=== PATIENT | female | born 1980 | race Caucasian/White ===

== ENCOUNTER 2022-11-23 17:53 | Emergency (ER) | payer OTHER, SELFPAY ==
--- NOTE | ~2022-11-23 | XR_ITS ---
EXAMINATION: XR ankle LT min 3V DATE: 11/23/2022 18:31 INDICATION: Inversion injury with medial and lateral left ankle pain TECHNIQUE: Anteroposterior, oblique, mortise, and lateral views of the left ankle were obtained. COMPARISON: None. FINDINGS: There is a nondisplaced transverse fracture through the lateral malleolus with a fracture plane exiti ng medially 1 cm below the level of the tibiotalar joint line. There is a second nondisplaced oblique fracture plane extending across the medial malleolus with the medial fracture line exiting near the junction of the articular surfaces of the medial malleolus and the tibial plafond. No other fracture identified. Specifically the stricture malleolus as well as the talar dome are intact. Ankle morti se remains congruent. Joint spaces are normal. Soft tissue swelling about both the medial and lateral malleoli. No ankle joint effusion. IMPRESSION: 1. Nondisplaced fractures of the medial and lateral malleoli of the left ankle. Reviewed, dictated and finalized at location A.
[2022-11-23 17:57] VITALS: BP 154/90; PULSE 95; RESP 20; TEMP 37.3; O2SAT 97
[2022-11-23 18:00] VITALS: BP 154/90; PULSE 95; RESP 20; TEMP 37.3; O2SAT 99
--- NOTE | 2022-11-23 18:13 | ED.GENADULT ---
HPI - General Adult General Chief complaint: Extremity Injury, Lower Stated complaint: L Ankle injury Time Seen by Provider: 11/23/22 18:12 Source: patient Mode of arrival: ambulatory Limitations: no limitations History of Present Illness HPI narrative: Patient is a 42-year-old white female twisted her ankle last night complains of lateral swelling and pain and a little bit of medial tenderness no pain hurts so bad today she threw up painful to walk on. No previous injury. She also could cause an abrasion to her right knee and a small scratch on her leg. No other injuries no loss of consciousness. Denies any problems seeing or hearing eating or drinking voiding or stooling bleeding or bruising rash or itching fever cough sore throat runny nose or any other complaints. Related Data Home Medications Medication Instructions Recorded Confirmed metoprolol succinate 50 mg 100 mg PO DAILY 11/23/22 11/23/22 tablet,extended release 24 hr omeprazole 20 mg capsule,delayed 20 mg PO DAILY 11/23/22 11/23/22 release Allergies Allergy/AdvReac Type Severity Reaction Status Date / Time Penicillins Allergy Unknown Anaphylaxis Unverified 11/23/22 17:57 Exam Narrative: White female no apparent distress.? Head normocephalic, atraumatic.? Eyes conjunctiva pink sclera nonicteric.? Extraocular movements are intact.? ? Extremities no cyanosis clubbing or edema.? Skin is warm and dry without rashes . abrasion of the right knee small scratch on her leg. Left ankle shows lateral malleolar swelling without contusion. She has moderate amount of tenderness inferiorly over the lateral malleolus. Minimal tenderness on the medial malleolus. No other tenderness of her foot ankle or leg. Stable ankle. DP and PT pulses are +2 she has normal above the left ankle. Course Vital Signs Vital signs: Vital Signs Temperature 37.3 C 11/23/22 17:57 Pulse Rate 95 11/23/22 17:57 Respiratory Rate 20 11/23/22 17:57 Blood Pressure 154/90 H 11/23/22 17:57 Pulse Oximetry 97 11/23/22 17:57 Oxygen Delivery Room Air 11/23/22 17:57 Temperature 37.3 C 11/23/22 18:00 Pulse Rate 95 11/23/22 18:00 Respiratory Rate 20 11/23/22 18:00 Blood Pressure 154/90 H 11/23/22 18:00 Pulse Oximetry 99 11/23/22 18:00 Oxygen Delivery Room Air 11/23/22 18:00 Medical Decision Making MDM Narrative Medical decision making narrative: patient was placed in room 2 history and physical was performed and x-rays done of her left ankle. Show nondisplaced fibular fracture distally And a distal tibial fracture over the medial malleolus. Patient is placed in a walking boot. patient was placed in a walking boot given Toradol 30 mg IM. Independent Historian:? ? Patient only Differential Dx includes but not limited to:? fracture dislocation sprain Medications were Reviewed: MEDICINES REVIEWED Independently Interpreted by me: left ankle x-ray shows soft tissue swelling laterally no fracture or dislocation , as well as a tibial fracture distally medial aspect as interpreted by me. Radiologist report reviewed by me showed:There is a nondisplaced transverse fracture through the lateral malleolus with a fracture plane exiting medially 1 cm below the level of the tibiotalar joint line. There is a second nondisplaced oblique fracture plane extending across the medial malleolus with the medial fracture line exiting near the junction of the articular surfaces of the medial malleolus and the tibial plafond.? No other fracture identified.? Specifically the stricture malleolus as well as the talar dome are intact.? Ankle mortise remains congruent. Joint spaces are normal. Soft tissue swelling about both the medial and lateral malleoli. No ankle joint effusion. IMPRESSION: 1. Nondisplaced fractures of the medial and lateral malleoli of the left ankle. External Source Review:? ? Social Situation Impacting Patients Care: Shared decision Making:? EVALUATION
[2022-11-23] MEDS: KETOROLAC 30 MG/ML VIAL (*BKC) IM (19:08)
[2022-11-23 19:28] VITALS: BP 153/93; PULSE 72; RESP 18; O2SAT 99
== END 2022-11-23 19:29 | disposition home or self-care (01) ==
PROVIDERS: Emergency Provider Emergency Medicine; PCP Family Medicine
DX: S82.845A Nondisplaced bimalleolar fracture of left lower leg, initial encounter for closed fracture (principal); X50.0XXA Overexertion from strenuous movement or load, initial encounter
CPT/HCPCS: 73610; 96372; 99283; J1885; L2112

== ENCOUNTER 2023-01-27 09:57 | Outpatient (RCR) | payer OTHER, MEDICAID, SELFPAY ==
--- NOTE | 2023-01-27 13:17 | PTOPEVAL1 ---
Assessment and note entered by JT File, PT Evaluation Information Assessment Status Evaluation Diagnosis L ankle fracture Onset November 23, 2022 Subjective Information Patient reports fracturing her L ankle on November 23 . The initial injury occurred when patient missed a step and fell down onto a grate while at a bar with friends. Patient did not visit the doctor until the following day after stepping down onto the L foot caused a significant increase in pain. Following x-rays showing fractures at the L ankle both medially and laterally, she was ordered to wear a boot 19/01 for 6 weeks. She notes she visited the doctor last Thursday, and she no longer has orders to wear the brace and has no weight bearing precautions. Patient reports no prior injuries to this area. She currently has pain with continued walking, stair climbing, and when pushing through L LE to get into/out of car. She states she is currently using a step to pattern while ascending/descending stairs. Patient states she has recently returned to work and has no difficulty performing activities there. Reported Pain Level Pain Score 0: Self Report Assessment PT Clinical Summary Gabi Spencer is a 42 y/o female who presents to skilled physical therapy following L ankle fractures. She currently demonstrates limitations in L ankle ROM, flexibility and strength, limiting patient's ability to ambulate with normal gait pattern. She has 25% functional decline assessed by the LEFS. She reports pain with activities that require continued weight bearing such as stair climbing and walking. Patient would benefit from skilled PT to address ROM, strength, and gait impairments. Plan of Care Interventions Electrical Stimulation,Gait Training,Hot Pack/Cold Pack,Manual Therapy,Neuro Re-education,Patient/ Caregiver Educati,Therapeutic Activities, Therapeutic Exercise PT Services Indicated Yes Treatment Frequency and 3x per week for 12 visits Duration These treatments will address the objective and functional deficits as defined above. The patient will be advanced safely and appropriately in order for the patient to progress towards his/her prior level of function. Additional exercises will be introduced and as well as a comprehensive home exercise program upon discharge, if needed, ?to ensure carryover of functional gains achieved in the clinic. This treatment plan has been reviewed and agreement upon by the patient.
== END 2023-02-09 23:59 | disposition home or self-care (01) ==
LOC: CHSPT 09:57
PROVIDERS: Visit Provider Orthopaedic Surgery
DX: S82.845A Nondisplaced bimalleolar fracture of left lower leg, initial encounter for closed fracture (principal)
CPT/HCPCS: 97110; 97112; 97150; 97161; 97530

== ENCOUNTER 2023-03-07 23:48 | Emergency (ER) | payer OTHER, SELFPAY ==
--- NOTE | ~2023-03-07 | CT_ITS ---
EXAMINATION: CT abdomen pelvis wo con DATE: 03/08/2023 00:19 INDICATION: Left abdominal pain, flank pain TECHNIQUE: Computed tomography (CT) of the abdomen and pelvis was performed without intravenous contr ast. Automated exposure control and iterative reconstruction technique were employed. Exam dose: 120 2.60 mGy-cm total exam DLP. COMPARISON: None. FINDINGS: The lung bases are clear of infiltrate or consolidation. Normal heart size. No pericardial or pleural effusion. There are at least 4 rounded or oval hypoattenuating lesions of the left and right hepatic lobes, wit h attenuation in the 30th 40 Hounsfield range. Further evaluation with MR liver examination is recomm ended for better characterization. Differential diagnosis includes hemangiomas, adenomas, metastases. Status post cholecystectomy. Normal splenic size with occasional splenic calcified granulomas consistent with old granulomatous di sease. No pancreatic mass lesion or calcification or pancreatic duct dilatation. No bile duct dilatation. Normal morphology of the adrenal glands. No renal mass lesion or urinary tract calculus or hydroureteronephrosis. Normal caliber of the abdominal aorta. No intraperitoneal or retroperitoneal or pelvic mass lesion or adenopathy or ascites. Approximately 3.2 cm right ovarian cyst Status post bilateral fallopian tube inserts. The urinary bladder is relatively evacuated. Normal appendix. No bowel obstruction, bowel wall thickening, pneumatosis or intraperitoneal free air . No suspicious osteolytic or osteoblastic lesions. IMPRESSION: Multiple indeterminate hepatic masses measuring up to 3.5 cm in 30-40 Hounsfield units. Hepatic MRI is recommended for further evaluation Status post cholecystectomy 3.2 cm right ovarian cystic lesion Status post bilateral fallopian tube inserts Normal appendix Reviewed, dictated and finalized at [facility]. Reviewed, dictated and finalized at location A. IMPRESSION: Multiple indeterminate hepatic masses measuring up to 3.5 cm in 30 -40 Hounsfield units. Hepatic MRI is recommended for further evaluation Status post cholecystectomy 3.2 cm right ovarian cystic lesion Status post bilateral fallopian tube inserts Normal appendix
[2023-03-07 23:51] VITALS: BP 144/97; PULSE 76; RESP 16; TEMP 36.4; O2SAT 98
[2023-03-08] MEDS: KETOROLAC 30 MG/ML VIAL (*BKC) IV PUSH (00:07)
[2023-03-08] MEDS: SODIUM CHLORIDE 0.9% IV 1,000 ML 999 ML IV CONT (00:08)
[2023-03-08] MEDS: ONDANSETRON INJ 4 MG/2 ML VIAL IV PUSH (00:08)
[2023-03-08 00:43] LABS: Appearance Urine Clear (Clear); Basophils Absolute Auto 0.04 K/mm3 (0.00-0.10); Basophils Percent Auto 0.6 % (0.0-1.0); Bilirubin Urine Negative (Negative); Blood Urine Negative (Negative); Color Urine Light Yellow (Yellow); Eosinophils Absolute Auto 0.02 K/mm3 (0.02-0.50); Eosinophils Percent Auto 0.3 % (1.0-6.0); Glucose Urine UA Negative (Negative); Hematocrit 37.2 % (35.0-49.0); Hemoglobin 12.4 g/dL (12.0-15.0); Immature Granulocyte Absolute 0.02 K/mm3 (0.00-0.00); Immature Granulocyte Percent A 0.3 % (0.0-0.0); Ketones Urine Negative (Negative); Leukocyte Esterase Ur 2+ LEU/UL (Negative); Lymphocytes Absolute Auto 2.01 K/mm3 (1.10-4.50); Lymphocytes Percent Auto 30.5 % (18.0-42.0); Mean Corpuscular HGB Conc 33.3 g/dL (32.0-36.0); Mean Corpuscular Hemoglobin 29.7 pg (27.0-31.0); Mean Corpuscular Volume 89.2 fL (78.0-102.0); Mean Platelet Volume 10.1 fl (9.2-11.8); Monocytes Absolute Auto 0.62 K/mm3 (0.10-0.90); Monocytes Percent Auto 9.4 % (2.0-11.0); Neutrophils Absolute Auto 3.9 K/mm3 (1.7-7.2); Neutrophils Percent Auto 58.9 % (50.0-70.0); Nitrate Urine Negative (Negative); Platelet Count Result 306 K/mm3 (150-420); Protein Urine Negative (Negative); Red Blood Count 4.17 M/mm3 (4.20-5.40); Red Cell Distribution Width 12.4 % (11.6-14.4); White Blood Count 6.6 K/mm3 (4.8-10.8)
[2023-03-08 00:49] LABS: Add Urine Microscopic? YES; Bacteria Urine 4+ /hpf; WBC Urine >75 /hpf (0-3)
[2023-03-08 00:56] LABS: Partial Thromboplastin Time 26.6 SEC (23.90-30.70); Prothrombin Time 11.1 Seconds (9.50-12.10)
[2023-03-08 00:59] LABS: Alanine Aminotransferase 16 U/L (14-59); Albumin Level 3.4 g/dL (3.4-5.0); Alkaline Phosphatase 80 U/L (46-116); Anion Gap 5 mmol/L (8-16); Aspartate Amino Transferase 13 U/L (15-37); Bilirubin,Total 0.4 mg/dL (0.00-1.00); Blood Urea Nitrogen 10 mg/dL (7-18); Calcium 8.6 mg/dL (8.5-10.1); Carbon Dioxide 30 mmol/L (21-32); Chloride 103 mmol/L (98-108); Estimated CRCL calculation 83 ml/min; Estimated Glomerular Filt Rate > 60; Glucose 89 mg/dL (70-99); Lipase 23 U/L (16-77); Osmolality Calculated 284 mOsm/kg (285-295); Potassium 3.9 mmol/L (3.5-5.1); Sodium 138 mmol/L (136-145); Total Protein 7.2 g/dL (6.4-8.2)
[2023-03-08 01:00] LABS: Lactic Acid Reflex 0.6 mmol/L (0.4-2.0)
[2023-03-08 02:06] VITALS: BP 123/87; PULSE 64; RESP 16; O2SAT 96
[2023-03-08] MEDS: KETOROLAC 15 MG/ML VIAL (*BKC) IV PUSH (03:47)
--- NOTE | 2023-03-08 06:25 | ED.GENADULT ---
HPI - General Adult General Chief complaint: Unspecified Stated complaint: l side pain Time Seen by Provider: 03/07/23 23:56 Source: patient Mode of arrival: ambulatory Limitations: no limitations History of Present Illness HPI narrative: 42-year-old female that presents with a flank radiates into lower groin area with no chills does have some dysuria hematuria no nausea no diarrhea constipation no chest pain or shortness. Patient no history of kidney stones. Onset (ago): day(s) Severity: moderate Severity scale (1-10): 6 Quality: aching Pain Consistency: intermittent Related Data Home Medications Medication Instructions Recorded Confirmed metoprolol succinate 50 mg 100 mg PO DAILY 11/23/22 01/21/23 tablet,extended release 24 hr omeprazole 20 mg capsule,delayed 20 mg PO DAILY 11/23/22 01/21/23 release mecobalamin (vitamin B12) 10,000 mcg IM 12/02/22 01/21/23 mcg solution for injection cholecalciferol (vitamin D3) 50 50 mcg PO DAILY 12/23/22 01/21/23 mcg (2,000 unit) capsule acetaminophen 650 mg 650 mg PO Q12H PRN 01/21/23 01/21/23 tablet,extended release (Tylenol 8 Hour) aspirin 325 mg tablet 325 mg PO DAILY PRN 01/21/23 01/21/23 ibuprofen 400 mg tablet 400 mg PO TID PRN 01/21/23 01/21/23 Allergies Allergy/AdvReac Type Severity Reaction Status Date / Time Penicillins Allergy Unknown Anaphylaxis Verified 03/07/23 23:51 Review of Systems Review of Systems: All systems reviewed & are unremarkable except as noted in HPI and below PMFSH Past Medical History Medical History Allergies Anemia Hypertension Nondisplaced bimalleolar fracture of left ankle October 2022 Surgical History Surgical History History of cholecystectomy History of rectal surgery hemorrhoid banding History of surgery of uterus esure Family History Family History Grandparent Cancer Other Cancer Mother Hypertension Social History Social History Smoking status: Never smoker Alcohol intake: current Substance use type: does not use Lack of Transportation: No Lack of Food: Never True Current Housing: I Have Housing Concerned About Future Housing: No Difficulty Paying Gas/Electric Bills: No Difficulty Paying for Meds: No Currently Unemployed: No Education: High School Diploma/GED Difficulty w/ Childcare or Family Care: No Living arrangements: alone Occupation/Education: occupation 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 Exam Const: General: cooperative, healthy appearing, comfortable and no acute distress Eyes: General: appearance normal, both eyes and all related structures Neck: Neck: normal visual inspection, full ROM and no lymphadenopathy Resp: Effort & Inspection: normal respiratory effort and able to speak in complete sentences Auscultation: clear to auscultation bilaterally Cardio: Jugular venous distension: no JVD Palpation: normal PMI Rate: regular rate : General: Yes bimanual renal exam normal bilaterally Back/Spine/Pelvis: Back: CVA tenderness Skin: General skin exam: normal color and no rashes or lesions noted Neuro: General: oriented to person, oriented to place and oriented to time Extrem: General: normal to inspection, full ROM and capillary refill normal Psych: Appearance: grossly normal Mental Status: mental status grossly normal Course Course Emergency Course: Labs reviewed with patient, patient received Toradol for received IV hydration and UA shows that she has a urinary tract. CT scan reviewed with patient no evidence of nephrolithiasis, does show a ovarian cyst on the right, room and small lesions on the liver in the absence of any cancers appears to be hemangioma are adenomas an
[2023-03-08 06:47] VITALS: BP 121/89; PULSE 62; RESP 16; TEMP 36.6; O2SAT 98
--- NOTE | 2023-03-10 13:46 | PC.NURSE ---
Final urine culture report: Patient discharged on Macrobid 100mg, 1 capsule po q12h x7 days, #14, 0 refill. culture is susceptible, no further treatment or action needed patient to continue medication as prescribed per ERP Dr. Henry
== END 2023-03-08 06:50 | disposition home or self-care (01) ==
PROVIDERS: Emergency Provider Emergency Medicine; PCP Family Medicine
DX: N30.00 Acute cystitis without hematuria (principal); I10 Essential (primary) hypertension
CPT/HCPCS: 36415; 74176; 80053; 81001; 83605; 83690; 85025; 85610; 85730; 87077; 87086; 87088; 87186; 96361; 96374; 96375; 96376; 99284; J1885; J2405; J7030

== ENCOUNTER 2023-03-19 08:58 | Outpatient (CLI) | payer OTHER, MEDICAID, SELFPAY ==
--- NOTE | ~2023-03-19 | US_ITS ---
Pelvic ultrasound. Clinical History: Ovarian cyst Technique: Realtime transabdominal and transvaginal scanning of the pelvis was performed. Color flow Doppler and Doppler spectral analysis were performed. Findings: The uterus is anteverted. The endometrial stripe has a thickness of 12 mm. No focal mass i s identified. The right ovary measures 2.3 x 2.2 x 1.6 cm. No significant right ovarian or adnexal mass is seen. The left ovary measures 2.7 x 2.5 x 2.2 cm. No significant left ovarian or adnexal mass is seen. There is no evidence of free fluid in the cul de sac. Impression: No significant abnormality seen. Reviewed, dictated and finalized at location . Impression: No significant abnormality seen.
--- NOTE | ~2023-03-19 | MR_ITS ---
EXAMINATION: MR abdomen wo/w con INDICATION: Indeterminate liver masses TECHNIQUE: Coronal SSFSE ARC, WATER:coronal LAVA-FLEX, Coronal 2D FIESTA FatSat, Axial SSFSE BH ARC, Axial 3D DualEcho BH, Axial SSFSE-IR, Axial DWI b=500, Axial 2D FIESTA FatSat, pre and dynamic postco ntrast Axial LAVA ARC, postcontrast Coronal In and Opposed phase LAVA FLEX COMPARISON: CT, 03/08/2023 CONTRAST: Multihance, 20 cc FINDINGS: There are multiple T1 hypointense, T2 hyperintense liver masses which demonstrate interrupt ed peripheral nodular enhancement with gradual centripetal filling on progressively of postcontrast s equences, consistent with hemangiomas. Measurements are as follows: 3.5 x 2.9 cm in liver segment Kristyn , 2.8 x 2.8 cm in liver segment VII 2.1 x 1.9 cm in liver segment III.6 x 1.5 cm in liver segment V, and 0.6 cm in liver segment . No suspicious liver mass is identified. The spleen, pancreas, and adr enal glands are normal. There are changes of cholecystectomy. There are no pathologically enlarged ab dominal lymph nodes. The kidneys are unremarkable. There are no dilated loops of bowel. IMPRESSION: 1. Multiple liver masses with MRI characteristics consistent with hemangiomas. Reviewed, dictated and finalized at location L.
== END 2023-03-19 08:59 | disposition home or self-care (01) ==
LOC: CHSIMG 08:58
PROVIDERS: PCP Family Medicine; Visit Provider Physician Assistant
DX: R16.0 Hepatomegaly, not elsewhere classified (principal); N83.209 Unspecified ovarian cyst, unspecified side
CPT/HCPCS: 74183; 76830; 76856; A9577

== ENCOUNTER 2023-03-24 08:13 | Outpatient (CLI) | payer OTHER, MEDICAID, SELFPAY ==
--- NOTE | ~2023-03-24 | XR_ITS ---
EXAMINATION: XR lumbar spine 2-3V DATE: 03/24/2023 08:29 INDICATION: Left flank pain. TECHNIQUE: 3 views of lumbar spine were obtained. COMPARISON: None. FINDINGS: There is 4 degrees dextrocurvature of lumbar spine. There is mild chronic anterior wedging of T10-T12 vertebral bodies. Intervertebral disc heights are normal. There are endplate osteophytes a t most levels. There is multilevel mild facet joint osteoarthritis. Surgical clips in the right upper quadrant are likely from cholecystectomy. There are inserts in the area of the fallopian tubes. IMPRESSION: 1. Mild lumbar spondylosis. Reviewed, dictated and finalized at location A. IMPRESSION: 1. Mild lumbar spondylosis.
== END 2023-03-24 08:14 | disposition home or self-care (01) ==
LOC: CHSIMG 08:16
PROVIDERS: PCP Family Medicine; Visit Provider Physician Assistant
DX: R10.9 Unspecified abdominal pain (principal); M43.06 Spondylolysis, lumbar region
CPT/HCPCS: 72100

== ENCOUNTER 2023-03-31 07:58 | Outpatient (CLI) | payer OTHER, MEDICAID, SELFPAY ==
--- NOTE | ~2023-03-31 | US_ITS ---
EXAMINATION: US retroperitoneal comp DATE: 03/31/2023 08:20 INDICATION: Left flank pain TECHNIQUE: Multiple ultrasound grayscale images of the kidneys were obtained. COMPARISON: Abdomen MRI dated 03/19/2023 FINDINGS: The right kidney measures 12.3 x 5.0 x 5.0 cm. The left kidney measures 10.5 x 4.3 x 6.8 cm. Dromedar y hump at the lateral margin of the left kidney. The kidneys demonstrate normal echogenicity. There i s no hydronephrosis in either kidney. No stones identified. The bladder is normal. IMPRESSION: 1. Normal kidneys without hydronephrosis. Reviewed, dictated and finalized at location A.
== END 2023-03-31 07:59 | disposition home or self-care (01) ==
LOC: CHSIMG 07:59
PROVIDERS: PCP Family Medicine; Visit Provider Physician Assistant
DX: R10.9 Unspecified abdominal pain (principal)
CPT/HCPCS: 76770

== ENCOUNTER 2023-06-24 13:07 | Outpatient (CLI) | payer OTHER, MEDICAID, SELFPAY ==
--- NOTE | 2023-06-24 13:31 | ECG_ITS ---
Measurements Intervals [place] Rate: 73 P: 9 OH: 155 QRS: 9 QRSD: 113 T: 9 QT: 379 QTc: 420 Interpretive Statements SINUS RHYTHM MINIMAL VOLTAGE CRITERIA FOR LVH, CONSIDER NORMAL VARIANT [MEETS CRITERIA IN ONE OF: R(aVL), S(V1), R(V5), R(V5/V6)+S(V1)] INFERIOR MYOCARDIAL INFARCTION [40+ ms Q WAVE AND/OR ST/T ABNORMALITY IN II/aVF], PROBABLY OLD NO PREVIOUS ECG AVAILABLE FOR COMPARISON Electronically Signed On 06-24-2023 21:06:44 ETHICS INSTRUCTOR by Lauren Bartholomew M.D.
[2023-06-24 13:59] LABS: Alanine Aminotransferase 15 U/L (6-35); Albumin Level 3.9 g/dL (3.5-5.1); Alkaline Phosphatase 68 U/L (38-126); Anion Gap 8 mmol/L (8-16); Aspartate Amino Transferase 22 U/L (14-36); Bilirubin,Total 0.3 mg/dL (0.2-1.3); Blood Urea Nitrogen 7 mg/dL (7-17); Calcium 8.9 mg/dL (8.4-10.2); Carbon Dioxide 24 mmol/L (22-30); Chloride 105 mmol/L (98-107); Estimated Glomerular Filt Rate > 60; Glucose 97 mg/dL (65-110); Potassium 4.2 mmol/L (3.4-5.0); Sodium 137 mmol/L (137-145)
== END 2023-06-24 13:08 | disposition home or self-care (01) ==
LOC: ANHSURGERY 13:12
PROVIDERS: PCP Family Medicine; Visit Provider Obstetrics & Gynecology
DX: N92.1 Excessive and frequent menstruation with irregular cycle (principal); I10 Essential (primary) hypertension; Z01.818 Encounter for other preprocedural examination
CPT/HCPCS: 36415; 80053; 86850; 86900; 86901; 93005

== ENCOUNTER 2023-06-26 04:12 | Day surgery (SDC) | payer OTHER, MEDICAID, SELFPAY ==
[2023-06-19 08:44] VITALS: BMI 39.3
--- NOTE | 2023-06-19 08:49 | PC.NURSE ---
Report to the Outpatient Waiting Room, entrance under the green pavilion located off [facility], at time 10:00 on date 06/26/23. Planned Procedure Time: 12:00. Time changes happen often and if your time is changed the preop area will call you the afternoon before. - You and your visitor will be asked to self-screen and do not enter if you have any COVID symptoms. - A mask is optional within the hospital at this time. Patients may have clear liquids (water, carbonated beverages, clear teas, apple juice) until 3 hours prior to surgery (9:00) with a maximum of 20 ounces. - No food from midnight until time of surgery Take the following medications with a SIP of water the morning of surgery: TYLENOL, METOPROLOL DO NOT STOP ANY OF YOUR OTHER PRESCRIPTION MEDICATIONS PRIOR TO SURGERY ?EXCEPT THE FOLLOWING Medications to discontinue per physician: VITAMINS/SUPPLEMENTS Date to take last dose: 06/22/[address] SANTANA REGARDING ASPIRIN Please no make-up, nail sao tomean, hairspray, perfume, deodorant, or body powder the day of surgery. No jewelry (including any body piercings) or valuables the day of surgery, leave them at home. Please take a shower or bath the night before, or the morning of, surgery with an antibacterial soap. Wear comfortable, loose fitting clothing. - Jewelry must be removed prior to entering the operating room. Rings and piercings that are not removed may be cut off. - The hospital will not accept responsibility for valuables. - Please leave all valuables, including medications, at home the day of surgery. If you are going home after surgery, a licensed local company refrigerated truck driver must drive you home. - NO public transportation without another adult if you receive anesthesia. - We recommend that an adult stay with you for 24 hours following discharge. - We also recommend that you do not drive, make important decision, drink alcoholic beverages, or take any drugs that were not prescribed by your health care provider for at least 24 hours after your discharge time. Follow any additional instructions given to you from your surgeon. If you or anyone in your household have experienced Covid symptoms in the past week, please notify your surgeon or the nurse liaison at the phone number below for possible testing. Telephone instructions given to PT - STEPHON MOELLER and asked if any additional questions and then verbalized understanding. Patient advised to call surgeon office or pre surgery nurse liaison [phone] if any additional questions.
[2023-06-26] VITALS (9 sets, daily range): BP systolic 131–152; BP diastolic 75–93; PULSE 68–102; RESP 12–18; TEMP 36.3–36.7; O2SAT 92–100
[2023-06-26] MEDS: LACTATED RINGERS 1,000 ML 30 ML IV CONT ×2 (11:05→14:32)
[2023-06-26] MEDS: KETOROLAC 15 MG/ML VIAL (*BKC) IV PUSH (11:05)
[2023-06-26] MEDS: ACETAMINOPHEN 500 MG TABLET 1000 MG PO (11:05)
--- NOTE | 2023-06-26 11:15 | WPDANESEPPF ---
Anes - Initial Pre Proc Eval Procedure: Operation Date: 06/26/23 12:00 Proposed Procedures p Laparoscopic Assisted Hysterectomy with Bilateral Salpingectomy - Benton Calderón MD Date/Time: 06/26/23 11:15 Surgeon: Benton Calderón MD Pre Op Diagnosis: Excessive and Frequent menstruation Patient Data Age: 42 Gender: F Height: 1.57 m Weight: 97.52 kg Allergies Allergy/AdvReac Type Severity Reaction Status Date / Time Penicillins Allergy Unknown Anaphylaxis Verified 06/19/23 08:42 Home Medications Medication Instructions Recorded Confirmed Type metoprolol succinate 50 mg 100 mg PO DAILY 11/23/22 06/19/23 History tablet,extended release 24 hr omeprazole 20 mg capsule,delayed 20 mg PO DAILY 11/23/22 06/19/23 History release mecobalamin (vitamin B12) 10,000 10,000 mcg IM MONTHLY 12/02/22 06/19/23 History mcg solution for injection cholecalciferol (vitamin D3) 50 50 mcg PO DAILY 12/23/22 06/19/23 History mcg (2,000 unit) capsule acetaminophen 650 mg 650 mg PO Q12H PRN Pain 01/21/23 06/19/23 History tablet,extended release (Tylenol 8 Hour) aspirin 325 mg tablet 325 mg PO DAILY 01/21/23 06/19/23 History Patient hx anesthesia problems: none Family hx anesthesia problems: none Results Review: All pre-operative results and documents have been reviewed as part of the pre-operative evaluation. [facility] Past Medical History Medical History Allergies Anemia Hypertension Nondisplaced bimalleolar fracture of left ankle October 2022 Surgical History Surgical History History of cholecystectomy History of rectal surgery hemorrhoid banding History of surgery of uterus esure Family History Family History Grandparent Cancer Other Cancer Mother Hypertension Social History Social History Smoking status: Never smoker Alcohol intake: former Substance use: never Substance use type: does not use Lack of Transportation: No Lack of Food: Never True Current Housing: I Have Housing Concerned About Future Housing: No Difficulty Paying Gas/Electric Bills: No Difficulty Paying for Meds: No Currently Unemployed: No Education: High School Diploma/GED Difficulty w/ Childcare or Family Care: No Living arrangements: with family Occupation/Education: occupation 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 Informed Consent: The patient's anesthetic plan and its attendant risks and benefits were discussed with the patient/family/POA. Questions were solicited and answers provided to the satisfaction of the patient/family/POA.
--- NOTE | 2023-06-26 12:18 | PM.IMHP ---
H&P: HPI History of Present Illness Date/Time: 06/26/23 12:18 Chief Complaint: Heavy vaginal bleeding Narrative: 42-year-old female with severe menorrhagia. We have agreed to perform total laparoscopic hysterectomy bilateral salpingectomy. We have discussed the procedure in detail. She understands the procedure. With she understands there is risk. She understands that injuries may occur that result in hospitalization, more surgery, and severe illness. She did denies any chest pain shortness of breath. She denies any nausea, vomiting, fever, chills. She understands risk of hemorrhage and infection. Review of Systems Review of Systems: All systems reviewed & are unremarkable except as noted in HPI and below Constitutional: Constitutional: Denies chills, Denies fatigue, Denies fever(s) and Denies weakness Eyes: Eyes: Denies blurry vision, Denies change in vision, Denies loss of peripheral vision, Denies loss of vision, Denies other visual disturbances and Denies eye pain ENT: Denies vertigo, Denies dizziness, Denies hearing loss, Denies mouth pain, Denies nasal obstruction, Denies neck mass and Denies neck pain Cardiovascular: Cardiovascular: Denies chest pain, Denies diaphoresis, Denies syncope, Denies leg edema and Denies dyspnea Respiratory: Respiratory: Denies chest congestion, Denies cough, Denies hemoptysis, Denies dyspnea and Denies wheezing Gastrointestinal: Gastrointestinal: Denies abdominal pain, Denies constipation, Denies diarrhea, Denies nausea and Denies vomiting Genitourinary: Genitourinary: Denies hematuria, Denies change in libido, Denies nocturia, Denies genital lesions, Denies flank pain and Denies urinary urgency Musculoskeletal: Musculoskeletal: Denies abnormal gait, Denies back pain, Denies myalgias, Denies arthralgias, Denies joint swelling, Denies muscle weakness and Denies neck pain Integumentary/Breasts: Skin/Breast: Denies swelling, Denies breast pain, Denies breast mass, Denies dry skin, Denies nipple discharge, Denies unusual bruising and Denies jaundice Neurologic: Denies Neuro-related abnormal movements, Denies Abnormal speech present, Denies abnormal gait, Denies behavioral changes, Denies confusion, Denies vertigo, Denies dizziness, Denies syncope, Denies loss of vision, Denies memory loss, Denies convulsions and Denies weakness Psychiatric: Psychiatric: Denies abnormal sleep pattern, Denies behavioral changes, Denies change in libido, Denies confusion, Denies depression, Denies anhedonia and Denies memory loss Endocrine: Endocrine: Reports no additional endocrine complaints, Denies change in libido and Denies fatigue Hematologic/Lymphatic: Hematologic/Lymphatic: Reports no additional hematologic/lymphatic complaints Allergic/Immunologic: Allergic/Immunologic: Reports no additional allergic/immunologic complaints and Denies wheezing PMFSH Past Medical History Medical History Allergies Anemia Hypertension Nondisplaced bimalleolar fracture of left ankle October 2022 Surgical History Surgical History History of cholecystectomy History of rectal surgery hemorrhoid banding History of surgery of uterus esure Family History Family History Grandparent Cancer Other Cancer Mother Hypertension Social History Social History Smoking status: Never smoker Alcohol intake: former Substance use: never Substance use type: does not use Lack of Transportation: No Lack of Food: Never True Current Housing: I Have Housing Concerned About Future Housing: No Difficulty Paying Gas/Electric Bills: No Difficulty Paying for Meds: No Currently Unemployed: No Education: High School Diploma/GED Difficulty w/ Childcare or Family Care: No Living arrangements: with
--- NOTE | 2023-06-26 12:21 | WPDHPUPDATE1 ---
History and Physical Update Update Date/Time: 06/26/23 12:21 History and Physical has been reviewed, including an updated exam of the patient. There are NO changes in the patient's condition. Risks, benefits, and alternatives have been discussed and questions answered. Patient agrees to proceed with procedure.
[2023-06-26] MEDS: ceFAZolin 2 GM/D5W 50 ML 2 GM/50 ML BAG IVPB (12:29)
[2023-06-26] MEDS: ceFAZolin SODIUM 1 GM VIAL (13:10)
--- NOTE | 2023-06-26 14:28 | P.OP_ITS ---
Procedure Note - Detailed Date of Procedure 06/26/23 Pre-op Diagnosis Excessive and Frequent menstruation Post-op Diagnosis Same Procedure Performed Total laparoscopic hysterectomy. Surgeon Benton Calderón MD Anesthesia General Findings Mildly enlarged uterus, normal-appearing tubes and ovaries, Increased vasc ularity and scarring around the cervix. normal vulva, vagina, cervix. Description of Procedure This patient was taken to the operating room. She was prepped and draped in the dorsal lithotomy position after induction of general anesthesia. The uterine manipulator and Laureen cup were placed. This was done with a speculum and tenaculum. The speculum was placed. The cervix was grasped with a tenaculum. The stay sutures were placed at 3 and 9:00 a.m.. The stay sutures of 0 Vicryl were brought through the appropriately sized Laureen cup. The tip of the ARNALDO manipulator was placed in the intrauterine cavity. The cup was slid into place around the cervix and into the fornices. It was locked into place. The sutures were then wrapped around the handle and tied under tension. A 5 mm skin incision was made in the left upper quadrant the abdomen. A 5 mm trocar was inserted into the intrauterine cavity under direct visualization of the scope. Pneumoperitoneum was achieved. A left lower quadrant 11 mm incision was made with scalpel. An 11 mm trocar was inserted into the anterior abdominal cavity under direct visualization the scope. A 5 mm infraumbilical incision was made with a scalpel and a 5 mm trocar was inserted the intra-abdominal cavity under direct visualization of the scope. Bilateral ureteral lysis was performed. This was done from the pelvic brim down to the uterine artery. This was done with careful dissection using sharp and blunt dissection. The fallopian tubes were removed bilaterally. The mesosalpinx around the fallopian tubes were cauterized transected with LigaSure cautery. This was done in a bilateral fashion from the ovary to the uterine cornua. The fallopian tube was transected at the uterine cornu and amputated. The tube was taken out the left lower quadrant trocar site. In a stepwise fashion along the lateral aspects of the uterus the round ligament and broad ligaments were cauterized transected down to the level of the uterine arteries. A bladder flap was created in the bladder was moved distally to the end of the cervix and over the Laureen cup. The bilateral uterine arteries were cauterized and transected. Colpotomy was then performed. In a circumferential fashion the vagina was transected using unipolar cautery. The incision was made down on the Laureen cup. The uterus and cervix were taken out through the vagina. A pneumo occluder was placed in the vagina. The vaginal cuff was closed with a 0 V lock suture in a running fashion. The pelvis was irrigated with copious amounts antibiotic irrigation. The ureters were again examined and found to be intact and flowing freely under the uterine arteries into the bladder. The bladder was intact. It was examined directly. The vagina was irrigated with Betadine solution after removal of the Pneumo occluder. The patient was taken to recovery room. She was stable condition. Sponge lap and needle counts were correct x2. Estimated Blood Loss 150 Drains Yes Packing No Pathology Yes Complications No immediate complications Condition Stable Disposition Floor
--- NOTE | 2023-06-26 15:37 | PC.NURSE ---
This patient, Gabi Spencer, was received from PACU on 06/26/23 at 1537. Patient/family oriented to unit policies and routines
[2023-06-26] MEDS: DEXTROSE 5%/0.45% SOD CHL 1,000 ML 125 ML IV CONT (16:06)
[2023-06-26] MEDS: KETOROLAC 30 MG/ML VIAL (*BKC) IV PUSH ×2 (16:07→23:35)
[2023-06-26] MEDS: ONDANSETRON INJ 4 MG/2 ML VIAL IV PUSH (16:10)
[2023-06-26] MEDS: HYDROcodone/acetaminophen (*CRX) 10-325 MG TABLET 1 TAB PO (19:26)
[2023-06-27 04:50] VITALS: BP 112/71; PULSE 62; RESP 18; TEMP 36.9; O2SAT 98
[2023-06-27] MEDS: HYDROcodone/acetaminophen (*CRX) 5-325 MG TABLET 1 TAB PO ×2 (04:52→08:54)
--- NOTE | 2023-06-27 08:00 | PC.NURSE ---
PT introductions made and plan of care discussed per post op certified rehabilitation counselor surgery, pain management, daily care activities and pending discharge to home. PT sole recipient of such instructions and no barriers to learning identified at this time. PT received such instructions per one to one discussion, and demonstrations this shift. PT verbalized understanding of such care.
[2023-06-27] MEDS: IBUPROFEN 600 MG TABLET PO (08:53)
[2023-06-27] MEDS: PANTOPRAZOLE 40 MG TABLET PO (08:54)
[2023-06-27 08:55] VITALS: BP 112/70; PULSE 69; RESP 18; TEMP 36.8; O2SAT 97
[2023-06-27] MEDS: METOPROLOL SUCCINATE EXT REL 100 MG TABCR PO (08:55)
--- NOTE | 2023-06-27 10:32 | PM.GYNPNOP ---
SIENE MAKER - A/P Postoperative Procedures: Procedures Operation Date: 06/26/23 12:00 Actual Procedure Side Surgeon p Laparoscopic Assisted Hysterectomy with Bilateral Salpingectomy Bilateral Benton Calderón MD Postoperative day: 1 Postoperative status: doing well Postoperative plan: see orders Time Spent With Patient Time: Total time spent is greater than 50% in coordination of care (as documented) at patient's floor/unit and/or counseling patient: Time with patient: less than 15 minutes SIENE MAKER- PN:Subj Post-Op Subjective Date/time seen: 06/27/23 10:32 Subjective: patient reports feeling better, patient has no complaints and pain is well controlled Exam Const: General: healthy appearing, comfortable and no acute distress Resp: Auscultation: clear to auscultation bilaterally, no rales, no rhonchi and no wheezes Cardio: Rate: regular rate Heart sounds: no click, no murmurs and no rubs GI: Inspection: non-distended Auscultation: normal bowel sounds Extrem: General: normal to inspection, no pedal edema and no calf tenderness SIENE MAKER - PN: Obj Data Vital Signs Vital Signs: Vital Signs - 24 hr 06/26/23 12:02 06/26/23 14:32 06/26/23 15:08 Temperature 97.3 F L 97.5 F L Pulse Rate 68 102 H Respiratory Rate 14 16 Blood Pressure 144/89 H 152/89 H Pulse Oximetry 100 100 Oxygen Delivery Room Air Simple Face Mask Room Air Oxygen Flow Rate 6 06/26/23 15:15 06/26/23 15:25 06/26/23 14:45 Temperature 97.5 F L Pulse Rate 83 85 84 Respiratory Rate 12 16 12 Blood Pressure 139/92 H 134/82 150/93 H Pulse Oximetry 92 93 100 Oxygen Delivery Room Air Room Air Simple Face Mask Oxygen Flow Rate 6 06/26/23 15:00 06/26/23 15:45 06/26/23 19:30 Temperature 97.3 F L 98.1 F Pulse Rate 81 79 75 Respiratory Rate 14 16 18 Blood Pressure 144/89 H 131/75 132/89 Pulse Oximetry 100 97 97 Oxygen Delivery Simple Face Mask Oxygen Flow Rate 6 06/26/23 19:30 06/26/23 23:35 06/26/23 23:35 Temperature 97.5 F L Pulse Rate 73 Respiratory Rate 18 Blood Pressure 135/90 Pulse Oximetry 100 Oxygen Delivery Room Air Room Air Oxygen Flow Rate 06/27/23 04:50 06/27/23 04:50 06/27/23 08:55 Temperature 98.4 F Pulse Rate 62 69 Respiratory Rate 18 Blood Pressure 112/71 Pulse Oximetry 98 Oxygen Delivery Room Air Oxygen Flow Rate Intake/Output Intake/Output: Intake & Output 06/24/23 06/25/23 06/26/23 06/27/23 23:59 23:59 23:59 23:59 Intake Total 850 1000 Output Total 800 Balance 50 1000 Meds/Results Medications: Active Medications Generic Name Dose Route Start Last Admin Trade Name Freq PRN Reason Stop Dose Admin Hydrocodone Bitart/Acetaminophen 1 tab 06/26/23 15:29 06/27/23 08:54 Hydrocodone/Acetaminophen (*Crx) 5-325 Mg Tablet PO 1 tab Q3H PRN Administration Pain Rated 5 or Less Hydrocodone Bitart/Acetaminophen 1 tab 06/26/23 15:29 06/26/23 19:26 Hydrocodone/Acetaminophen (*Crx) 10-325 Mg Tablet PO 1 tab Q3H PRN Administration Pain Rated 6 or Greater Ibuprofen 600 mg 06/26/23 15:29 06/27/23 08:53 Ibuprofen 600 Mg Tablet PO 600 mg Q6H PRN Administration Cramping Ketorolac Tromethamine 30 mg 06/26/23 15:29 06/26/23 23:35 Ketorolac 30 Mg/Ml Vial (*Bkc) IV PUSH 07/01/23 15:28 30 mg Q6H PRN Administration Pain Rated 4-6 Metoprolol Succinate 100 mg 06/27/23 09:00 06/27/23 08:55 Metoprolol Succinate Ext Rel 100 Mg Tabcr PO 100 mg DAILY GERALDINE Administration Naloxone HCl 0.1 mg 06/26/23 15:29 Naloxone Hcl 0.4 Mg/Ml Vial IV PUSH Q2M PRN Respiratory rate less than 10 Ondansetron HCl 4 mg 06/26/23 15:29 06/26/23 16:10 Ondansetron Inj 4 Mg/2 Ml Vial IV PUSH 4 mg Q6H PRN Administration Nausea And Vomiting Pantoprazole Sodium 40 mg 06/27/23 09:00 06/27/23 08:54 Pantoprazole 40 Mg Tablet PO 40 mg DAILY GERALDINE Administration
--- NOTE | 2023-06-27 11:00 | PC.NURSE ---
PT received discharge instructions per protocol and verbalized understanding of such care.
--- NOTE | 2023-06-27 11:25 | PC.NURSE ---
PT discharged to home ambulatory accompanied by family and walked to waiting car. Follow up appts confirmed
== END 2023-06-27 11:25 | disposition home or self-care (01) ==
LOC: ANHSURGERY 10:09 → ANHOB2 15:40
PROVIDERS: PCP Family Medicine; Visit Provider Obstetrics & Gynecology
PROC: 0UT9FZZ Resection of Uterus, Via Natural or Artificial Opening With Percutaneous Endoscopic Assistance (ICD-10-PCS; CPT 58571; principal; 2023-06-26 12:00)
DX: N88.8 Other specified noninflammatory disorders of cervix uteri (principal); N87.9 Dysplasia of cervix uteri, unspecified; N92.0 Excessive and frequent menstruation with regular cycle; I10 Essential (primary) hypertension
CPT/HCPCS: 58571; 36415; 80053; 86850; 86900; 86901; 88307; 93005; 99199; A9270; J0330; J0690; J1100; J1170; J1200; J1885; J2250; J2405; J2704; J3010; J7030; J7120

== ENCOUNTER 2023-12-24 08:06 | Outpatient (CLI) | payer OTHER, MEDICAID, SELFPAY ==
--- NOTE | ~2023-12-24 | US_ITS ---
EXAMINATION: US renal BI DATE: 12/24/2023 08:30 INDICATION: Urinary frequency and burning with urination TECHNIQUE: Multiple ultrasound grayscale images of the kidneys were obtained. COMPARISON: None. FINDINGS: The right kidney measures 12.2 x 4.8 x 5.6 cm. The left kidney measures 12.3 x 5.3 x 6.2 cm. The kidn eys demonstrate normal echogenicity. There is no hydronephrosis in either kidney. No stones identifi ed. The bladder is normal with calculated prevoid bladder volume of 65.8 mm and postvoid bladder volu me of 5 mm.. IMPRESSION: 1. Normal kidneys without hydronephrosis. Reviewed, dictated and finalized at location B.
== END 2023-12-24 08:07 | disposition home or self-care (01) ==
LOC: CHSIMG 08:08
PROVIDERS: PCP Family Medicine; Visit Provider Physician Assistant
DX: R35.0 Frequency of micturition (principal)
CPT/HCPCS: 76775

== ENCOUNTER 2025-03-18 06:56 | Outpatient (CLI) | payer OTHER, MEDICAID, SELFPAY ==
--- NOTE | ~2025-03-18 | MR_ITS ---
EXAMINATION: MR brain/brain stem wo con DATE: 03/18/2025 07:39 INDICATION: Dizziness. Altered level of consciousness. TECHNIQUE: Magnetic resonance imaging (MRI) of the brain and brainstem was performed without intravenous contrast. COMPARISON: None. FINDINGS: There is no intracranial hemorrhage, acute infarction, or abnormal intracranial mass lesion. The ventricles are normal in size. The orbits are normal. There is mild mucosal thickening in the ethmoid sinuses. The mastoid air cells are normal. IMPRESSION: 1. Normal brain. Reviewed, dictated and finalized at location E. IMPRESSION: 1. Normal brain.
== END 2025-03-18 06:57 | disposition home or self-care (01) ==
LOC: CHSIMG 06:58
PROVIDERS: PCP Family Medicine; Visit Provider Physician Assistant
DX: R56.9 Unspecified convulsions (principal)
CPT/HCPCS: 70551

== ENCOUNTER 2025-04-11 12:08 | Outpatient (CLI) | payer OTHER, MEDICAID, SELFPAY ==
--- NOTE | ~2025-04-11 | US_ITS ---
EXAMINATION: US carotid duplex BI DATE: 04/11/2025 12:49 INDICATION: Dizziness. TECHNIQUE: Grayscale, color Doppler, and pulsed Doppler images of the cervical carotid arteries were obtained. The degree of vessel stenosis is placed in one of the following categories: normal, <50%, 50-69%, >=70% but less than near- occlusion, near-occlusion, or total occlusion. Note that percent stenosis relative to normal distal artery lumen diameter is indirectly measured from velocity measurements as described by Tyrone, et al. Radiology 2003; 229:340-346. COMPARISON: None. FINDINGS: RIGHT: The right common carotid artery (CCA) peak systolic velocity (PSV) is 72 cm/s. The right internal carotid artery (ICA) PSV is 72 cm/s. The right ICA end- diastolic velocity (EDV) is 28 cm/s. The right ICA/CCA PSV ratio is 1.0. Grayscale and color Doppler images yield an estimate of <50% diameter reduction from plaque in the ICA. There is antegrade flow in the right vertebral artery. LEFT: The left CCA PSV is 89 cm/s. The left ICA PSV is 73 cm/s. The left ICA EDV is 36 cm/s. The left ICA/CCA PSV ratio is 0.8. Grayscale and color Doppler images yield an estimate of <50% diameter reduction from plaque in the ICA. There is antegrade flow in the left vertebral artery. IMPRESSION: 1. <50% stenosis in the right internal carotid artery. 2. <50% stenosis in the left internal carotid artery. Reviewed, dictated and finalized at location E.
--- OUTSIDE RECORDS SUMMARY | 2025-04-11 13:53 | XMS_ITS | Clinical Summary ---
Author Organization [facility] Address [address] [place] [address] Phone Care Team Providers Care Generating Plant Superintendent Name Role Phone James Becerra MD Primary Care Provider [phone] Allergies Active Allergy Reactions Criticality Noted Date Comments Penicillins Hives 03/22/2025 Social History Tobacco Use Types Packs/Day Years Used Date Smoking Tobacco: Never Smokeless Tobacco: Never Tobacco Cessation:Counseling Given: Not Answered Alcohol Use Standard Drinks/Week Comments Yes 0 (1 standard drink = 0.6 oz pur e alcohol) occasional Comments Unknown Sex and Gender Information Value Date Recorded Sex Assigned at Not on file Legal Sex Female 9:23 AM CDT Gender Identity Not on file Sexual Orientation Not on file Plan of Treatment Upcoming Encounters Date Type Department Care Team (Late st Contact Info) Description 05/01/2025 9:15 AM EXPLOSIVE SPECIALIST Office Visit [facility] [address] [place] [id number] Dm Mackey MD [address] [place] [id number] Health Maintenance Due Date Last Done Comments Hepatitis C Virus (HCV) Screening 1978 Mammogram 1978 TdaP Immunization 1978 Hepatitis B Immunization (1 of 3 - 19+ 3-dose series) 1997 Pap Smear 1999 Cervical Cancer Screening (CCS) 2008 HPV/Cotest 2008 Discussion re Starting/Frequ ency of Mammograms 2018 Cologuard 2023 Colonoscopy 2023 Colorectal Cancer Screening 2023 Immunochemical Fecal Occult Blood 2023 Influenza Immunization (#1) 2025 SARS-COV-2 Immunization ( season) 2025 Respiratory Syncytial Virus (RSV) Immunization (Adult) (1 - 1-dose 75+ series) 2053 Human Papillomavirus (HPV) Immunization Aged Out No longer eligible b ased on patient's age to complete this topic Meningococcal Immunization (ACWY) Aged Out No longer eligible based on patient's age to complete this topic Pneumococcal Immunization Combined Aged Out No longer eligible based on patient's age to complete this topic Rotavirus Immunization Aged Out No lo nger eligible based on patient's age to complete this topic Insurance [facility] on file MEDICAID [place] Care Teams Generating Plant Superintendent Relationship Specialty Start Date End Date James Becerra MD [address] [place] [address] PCP - General Family Medicine 03/22/25
== END 2025-04-11 12:09 | disposition home or self-care (01) ==
PROVIDERS: PCP Family Medicine; Visit Provider Physician Assistant
DX: R42 Dizziness and giddiness (principal); I65.23 Occlusion and stenosis of bilateral carotid arteries
CPT/HCPCS: 93880